=== PATIENT | female | born 2000 | race African-American/Black ===

== ENCOUNTER 2020-07-30 10:42 | Emergency (ER) | payer OTHER, SELFPAY ==
[2020-07-30 10:55] VITALS: BP 106/56; PULSE 63; RESP 16; TEMP 36.4; O2SAT 100
--- NOTE | 2020-07-30 11:24 | ED.FEMALEGU ---
HPI - Female Genitourinary General Chief complaint: Urogenital-Female Stated complaint: Uti Complaint Time Seen by Provider: 07/30/20 11:24 Source: patient Mode of arrival: ambulatory History of Present Illness HPI Narrative: Estela Mcdonough is a 19 yo female with no prior medical history who comes to express care for 2 separate problems-complaining of itching in her genital area and frequency and dysuria. Patient states that these she started 2 weeks ago was treated at another hospital and is finished the metronidazole that was prescribed, discontinue of urinary symptoms and now has increased itchiness and discomfort Related Data Home Medications Medication Instructions Recorded Confirmed B Complex-Vitamin B12 1 mg PO DAILY 07/30/20 07/30/20 Allergies Allergy/AdvReac Type Severity Reaction Status Date / Time No Known Allergies Allergy Verified 07/30/20 11:04 Review of Systems Review of Systems: Narrative: CONSTITUTIONAL: Denies fever, chills, sweats. EYES: Denies visual changes, redness, discharge. ENT: Denies rhinorrhea, congestion, sore throat, otalgia. CARDIOVASCULAR: Denies chest pain, palpitations, edema. RESPIRATORY: Denies dyspnea, wheezing, cough GASTROINTESTINAL: Denies abdominal pain, nausea, vomiting, diarrhea. GENITOURINARY has dysuria, hematuria, no abnormal discharge; has vaginal itching SKIN: Denies rash or itching. NEUROLOGIC: Denies numbness, or focal weakness. PSYCHIATRIC: Denies anxiety or depression. PMFSH Past Medical History Medical History No active medical problems Family History Family History Other No active medical problems Social History Social History (Updated 07/30/20 @ 14:44 by Stephenie Talley CNP) Smoking status: Never smoker Alcohol intake: current Gender identity (if verbalized by the patient): Female Comments At time of signature, I agree with nursing past medical, surgical, social and family history. There is no relevant family history pertinent to the presenting complaint. Exam Narrative: Exam Narrative: GENERAL: This is a well-nourished, well-developed patient, in mild distress. HEAD: normocephalic, atraumatic. EYES: Sclera clear/white. Vision is grossly intact. EARS: External ears normal, . Hearing grossly intact. NOSE: External nose normal without nasal discharge, nares without redness, no rhinorrhea. THROAT: Mucous membranes moist, so my daughters exam NECK: Neck supple, non-tender CARDIOVASCULAR: Regular rate and rhythm without murmurs, gallops, or rubs. RESPIRATORY: Clear to auscultation. Breath sounds equal bilaterally. No wheezes, rales, or rhonchi. : Itching without discharge in vaginal area GASTROINTESTINAL: Abdomen soft, non-tender, SKIN: warm, intact with no suspicious lesions or rash, good texture and turgor. NEURO: awake, alert, and oriented to person, place and time. There were no obvious focal neurologic abnormalities. Steady gait EXTREMITIES: Normal range of motion. BACK: Nontender without deformity Course Course Emergency Course: Patient failed first course of metronidazole; urine dipstick is positive for leukocytes blood nitrate Patient started on Diflucan-today, after finished 5 days of antibiotic, additional dose 3 days later Keflex 1 twice daily x5 days for UTI Explain medications patient is well as avoidance of UTI Vital Signs Vital signs: Vital Signs Temperature 97.6 F 07/30/20 10:55 Pulse Rate 63 07/30/20 10:55 Respiratory Rate 16 07/30/20 10:55 Blood Pressure 106/56 L 07/30/20 10:55 Pulse Oximetry 100 07/30/20 10:55 Temperature 97.6 F 07/30/20 10:55 Pulse Rate 63 07/30/20 10:55 Respiratory Rate 16 07/30/20 10:55 Blood Pressure 106/56 L 07/30/20 10:55 Pulse Oximetry 100 07/30/20 10:55 MDM - Female Genitourinary Differential Diagnosis Differential diagnosis: Lik
== END 2020-07-30 11:37 | disposition home or self-care (01) ==
PROVIDERS: Emergency Provider Nurse Practitioner; PCP Family Medicine
DX: N30.01 Acute cystitis with hematuria (principal); N76.0 Acute vaginitis
CPT/HCPCS: 81003; 87086; 99213; G0463

== ENCOUNTER 2020-08-23 17:12 | Emergency (ER) | payer OTHER, SELFPAY ==
[2020-08-23 17:24] VITALS: BP 132/87; PULSE 105; RESP 20; TEMP 36.6; O2SAT 97
[2020-08-23 17:28] VITALS: BP 132/87; PULSE 105; RESP 20; TEMP 36.6; O2SAT 97
--- NOTE | 2020-08-23 17:43 | ED.GENADULT ---
HPI - General Adult General Chief complaint: Urogenital-Female Stated complaint: yeast infection Time Seen by Provider: 08/23/20 17:43 Source: patient and RN notes reviewed Mode of arrival: ambulatory Limitations: no limitations History of Present Illness HPI narrative: 19-year-old -[place] female presents with vaginal irritation for 1 day. Estela says vaginal irritation consists of thick white-yellow discharge with itching. Has had yeast infections before and says symptoms are similar. No treatment. No significant pelvic pain. No dysuria. Denies fever or chills. No concerns for STDs. No new partners. Sexually active. No new partner. Denies unprotected intercourse and multiple partners. Does not douche. Exacerbating factors consist of urination. Denies hematuria or vaginal bleeding. Denies being , LMP 08/20/20.? No flank pain. Denies nausea, vomiting, and abdominal pain.? Tolerating liquids well.? Remains active. The patient reports she have not been diagnosed with COVID-19. The patient reports she is not waiting for the results of a COVID-19 lab test. The patient reports she do not have weakness or fatigue. The patient reports she do not have a new or worsening cough or shortness of breath. Denies chest pain. The patient reports she do not have any rhinorrhea, congestion, sore throat, loss of taste, and diarrhea. Denies concerns for COVID-19 or exposures been home with limited outdoor exposure except for essential household needs, work, and return home. At this time, patient is not suspected of having COVID-19. Some parts of this dictation were generated by voice recognition software and may contain typographical and/or grammatical inaccuracies. Related Data Allergies Allergy/AdvReac Type Severity Reaction Status Date / Time No Known Allergies Allergy Verified 07/30/20 11:04 Review of Systems Review of Systems: Narrative: CONSTITUTIONAL: Denies fever, chills, sweats. EYES: Denies visual changes, redness, discharge. ENT: Denies rhinorrhea, congestion, sore throat, otalgia. CARDIOVASCULAR: Denies chest pain, palpitations, edema. RESPIRATORY: Denies dyspnea, wheezing, cough. GASTROINTESTINAL: Denies abdominal pain, nausea, vomiting, diarrhea. GENITOURINARY: Complains of vaginal irritation, abnormal discharge. Denies dysuria, hematuria. SKIN: Denies rash or itching. MUSCULOSKELETAL: Denies acute back pain, joint pain, or myalgia. NEUROLOGIC: Denies numbness or focal weakness. PSYCHIATRIC: Denies anxiety or depression. All systems reviewed & are unremarkable except as noted in HPI and below. [facility] Past Medical History Medical History (Updated 08/24/20 @ 00:00 by Background Daemon) No significant past medical history Surgical History Surgical History (Updated 08/23/20 @ 17:54 by SERGEY Waterman) No significant past surgical history Family History Family History (Updated 08/23/20 @ 17:55 by SERGEY Waterman) Father Unknown family medical history Mother Unknown family medical history Other No active medical problems Social History Social History (Updated 08/23/20 @ 17:55 by SERGEY Waterman) Smoking status: Never smoker Tobacco type: cigarettes Second hand tobacco smoke exposure: No Alcohol intake: current Substance use: current Substance use type: marijuana Living arrangements: with family Occupation/Education: occupation Gender identity (if verbalized by the patient): Female Sexual Orientation (if Verbalized by the Patient): Straight or Heterosexual Comments At time of signature, agree with nurse past medical, surgical, social, and family history.? There is no relevant family history pertinent to the presenting complaint. Exam Narrative: Exam Narrative: GENERAL: This is a well-nourished, well-developed patient, in no apparent distress.? Talks in full sentences and ambulates with steady gait without dyspnea. HEAD: normocephalic, atr
== END 2020-08-23 18:16 | disposition home or self-care (01) ==
PROVIDERS: Emergency Provider Nurse Practitioner Family
DX: N76.0 Acute vaginitis (principal)
CPT/HCPCS: 81003; 87077; 87086; 87088; 99213; G0463

== ENCOUNTER 2021-01-16 11:54 | Emergency (ER) | payer OTHER, SELFPAY ==
[2021-01-16 12:13] VITALS: BP 116/63; PULSE 59; RESP 16; TEMP 36; O2SAT 99
--- NOTE | 2021-01-16 12:19 | ED.FEMALEGU ---
HPI - Female Genitourinary General Chief complaint: Urogenital-Female Stated complaint: burning while urination Time Seen by Provider: 01/16/21 12:19 Source: patient Mode of arrival: ambulatory Limitations: no limitations History of Present Illness HPI Narrative: Ankita Pina is 20 yo female with no PMH who was complaining some burning with urination and having a lump in her vaginal entrance started this morning Related Data Allergies Allergy/AdvReac Type Severity Reaction Status Date / Time No Known Allergies Allergy Verified 01/16/21 12:10 Review of Systems Review of Systems: Narrative: CONSTITUTIONAL: Denies fever, chills, sweats. EYES: Denies visual changes, redness, discharge. ENT: Denies rhinorrhea, congestion, sore throat, otalgia. CARDIOVASCULAR: Denies chest pain, palpitations, edema. RESPIRATORY: Denies dyspnea, wheezing, cough GASTROINTESTINAL: Denies abdominal pain, nausea, vomiting, diarrhea. GENITOURINARY: Denies dysuria, has burning on urination, hematuria, abnormal discharge SKIN: Denies rash or itching. NEUROLOGIC: Denies numbness, or focal weakness. PSYCHIATRIC: Denies anxiety or depression. PMFSH Past Medical History Medical History No significant past medical history Surgical History Surgical History No significant past surgical history Family History Family History Father Unknown family medical history Mother Unknown family medical history Other No active medical problems Social History Social History Smoking status: Never smoker Tobacco type: cigarettes Second hand tobacco smoke exposure: No Alcohol intake: current Substance use: current Substance use type: marijuana Gender identity (if verbalized by the patient): Female Comments At time of signature, I agree with nursing past medical, surgical, social and family history. There is no relevant family history pertinent to the presenting complaint. Exam Narrative: Exam Narrative: GENERAL: This is a well-nourished, well-developed patient, in mild distress. HEAD: normocephalic, atraumatic. EYES: Sclera clear/white. Vision is grossly intact. EARS: External ears normal. Hearing grossly intact. NOSE: External nose normal without nasal discharge, nares without redness, no rhinorrhea. THROAT: Mucous membranes moist, NECK: Neck supple, CARDIOVASCULAR: Regular rate and rhythm without murmurs, gallops, or rubs. RESPIRATORY: Clear to auscultation. Breath sounds equal bilaterally. No wheezes, rales, or rhonchi. GASTROINTESTINAL: Abdomen soft, : Vaginal vault is mildly inflamed she has a skin tag or wart at the entrance of the vaginal vault with no discharge SKIN: warm, intact with no suspicious lesions or rash, good texture and turgor. NEURO: awake, alert, and oriented to person, place and time. There were no obvious focal neurologic abnormalities. Steady gait EXTREMITIES: Normal range of motion. BACK: Nontender without deformity Course Course Emergency Course: Patient came here for evaluation of dysuria Given metroniazole - followup with family medicine for a pelvic exam and recheck Vital Signs Vital signs: Vital Signs Temperature 96.8 F L 01/16/21 12:13 Pulse Rate 59 L 01/16/21 12:13 Respiratory Rate 16 01/16/21 12:13 Blood Pressure 116/63 01/16/21 12:13 Pulse Oximetry 99 01/16/21 12:13 Temperature 96.8 F L 01/16/21 12:13 Pulse Rate 59 L 01/16/21 12:13 Respiratory Rate 16 01/16/21 12:13 Blood Pressure 116/63 01/16/21 12:13 Pulse Oximetry 99 01/16/21 12:13 Procedures Other Procedure Procedure 1: Other Procedure: pelvic exam- erythme, irritation vaginal vault, no discharge =- wart apperaing lesion at entrance MDM - Female Genitourinary Diff
== END 2021-01-16 12:41 | disposition home or self-care (01) ==
PROVIDERS: Emergency Provider Nurse Practitioner
DX: N76.1 Subacute and chronic vaginitis (principal); N89.8 Other specified noninflammatory disorders of vagina
CPT/HCPCS: 81003; 99214; G0463